=== PATIENT | male | born 1945 | race Caucasian/White ===

== ENCOUNTER 2017-12-08 16:06 | Inpatient (IN) | payer MEDICARE, OTHER ==
[2017-12-08] MEDS ORDERED: Sodium Chloride 0.9% 10 ML Syringe FLUSH PRN (16:28)
[2017-12-08] MEDS ORDERED: cefTRIAXone 1 GM in Sodium Chloride 0.9% 100 ML IV ONE (16:38)
[2017-12-08] MEDS ORDERED: Ondansetron 4 MG/2 ML SDV IVPUSH ONE (16:39)
[2017-12-08] MEDS ORDERED: Acetaminophen 325 MG Tab PO ONE (16:39)
--- NOTE | 2017-12-08 16:44 | EDM.PDOC ---
ED HPI GENERAL MEDICAL PROBLEM - General Chief Complaint: Genitourinary Problem Stated Complaint: UTI/THROWING UP Time Seen by Provider: 12/08/17 16:16 Source of Information: Reports: Patient, RN Notes Reviewed - History of Present Illness INITIAL COMMENTS - FREE TEXT/NARRATIVE: 72-year-old male is been sent over from walk-in clinic for further evaluation treatment of UTI, fever or chills. He started with achiness yesterday and just not feeling well in a general way. The fever started sometime earlier today with shaking chills this afternoon, temp 103.5 on arrival to ED. The also has developed some nausea and vomiting over the past 1-2 hours. He is not diabetic. No major abdominal back or flank discomfort at this time. He is not coughing, no difficulty breathing. He does have history of what is described as a "UTI treated with 1 dose of IV and then continued oral antibiotics about 1 months ago. Abdominal Pain Score (Numeric/FACES): 4 - Related Data Allergies Allergy/AdvReac Type Severity Reaction Status Date / Time No Known Allergies Allergy Verified 12/08/17 16:20 Home Meds: Home Meds Omeprazole 40 mg PO DAILY PRN 12/08/17 [History] Past Medical History HEENT History: Reports: Impaired Vision Other HEENT History: wears eyeglasses. Gastrointestinal History: Reports: GERD Genitourinary History: Reports: UTI, Recurrent Other Genitourinary History: TURP Musculoskeletal History: Reports: Arthritis, Fracture Other Musculoskeletal History: surgery for infected finger. Neurological History: Reports: Vertigo Hematologic History: Reports: Anemia, Iron Deficiency Oncologic (Cancer) History: Reports: Basal Cell Carcinoma Dermatologic History: Reports: Other (See Below) Other Dermatologic History: skin CA - Infectious Disease History Infectious Disease History: Reports: Chicken Pox, Measles, Mumps - Past Surgical History HEENT Surgical History: Reports: Tonsillectomy Male Surgical History: Reports: TURP-Transurethral Resection of Prostate Social & Family History - Tobacco Use Smoking Status *Q: Never Smoker Second Hand Smoke Exposure: No - Caffeine Use Caffeine Use: Reports: Soda - Recreational Drug Use Recreational Drug Use: No ED ROS GENERAL - Review of Systems Review Of Systems: See Below Constitutional: Reports: Fever, Chills HEENT: Denies: Sinus Problem, Throat Pain Respiratory: Denies: Shortness of Breath, Cough Cardiovascular: Denies: Chest Pain GI/Abdominal: Reports: Nausea, Vomiting. Denies: Abdominal Pain : Reports: Frequency. Denies: Dysuria, Hematuria Musculoskeletal: Reports: Other (Generalized achiness) Skin: Reports: No Symptoms Neurological: Reports: No Symptoms ED EXAM, RENAL/ - Physical Exam Exam: See Below General Appearance: Alert, No Apparent Distress Eye Exam: Bilateral Eye: PERRL Nose: Normal Inspection Throat/Mouth: Normal Inspection, Normal Oropharynx Head: Atraumatic. No: Facial Swelling Neck: Supple, Full Range of Motion Respiratory/Chest: No Respiratory Distress, Lungs Clear, Normal Breath Sounds Cardiovascular: Tachycardia GI/Abdominal: Soft, Non-Tender. No: Guarding (Male) Exam: Normal Prostate (prostate very slightly enlarged, nontender, no unusual mass palpable) Back Exam: No: CVA Tenderness (L), CVA Tenderness (R) Extremities: Normal Inspection, Normal Range of Motion. No: Pedal Edema Neurological: Alert, Oriented, No Motor/Sensory Deficits Skin Exam: Warm, Dry, Normal Color Course - Vital Signs Last Recorded V/S: Last Vital Signs Temp 103 F H 12/08/17 16:55 Pulse 100 12/08/17 16:10 Resp 18 12/08/17 16:10 BP 146/77 H 12/08/17 16:10 Pulse Ox 95 12/08/17 16:10 - Orders/Labs/Meds Orders: Active Orders 24 hr Category Date Time Status Peripheral IV Care [RC] . DIRECTED Care 12/08/17 16:28 Active CULTURE BLOOD [BC] Stat Lab 12/08/17 16:40 Received CULTURE BLOOD [BC] Stat Lab 12/08/17 16:50 Received CULTURE URINE [RM] Stat Lab 12/08/17 17:15 Received UA W/MICROSCOPIC [URIN] Stat Lab 12/08/17 17:15 Ordered Levofloxacin/Dextrose 5%-Water [Levaquin in D5W 750 MG/ Med 12/08/17 18:00 Active 150 ML] 750 mg Premix Bag 1 bag IV ONETIME Sodium Chloride 0.9% [Normal Saline] 1,000 ml Med 12/08/17 16:45 Active IV ONETIME Sodium Chloride 0.9% [Saline Flush] Med 12/08/17 16:28 Active 10 ml FLUSH ASDIRECTED PRN Peripheral IV Insertion Adult [OM.PC] Stat Oth 12/08/17 16:28 Ordered Medication Orders Sodium Chloride (Normal Saline) 1,000 mls @ 999 mls/hr IV ONETIME ELIE Last Admin: 12/08/17 16:54 Dose: 999 mls/hr Levofloxacin/Dextrose 750 mg/ (Premix) 150 mls @ 100 mls/hr IV ONETIME ONE Stop: 12/08/17 19:29 Last Admin: 12/08/17 18:19 Dose: 100 mls/hr Sodium Chloride (Saline Flush) 10 ml FLUSH ASDIRECTED PRN PRN Reason: Keep Vein Open Last Admin: 12/08/17 17:28 Dose: 10 ml Labs: Laboratory Tests 12/08/17 12/08/17 12/08/17 Range/Units 16:40 16:40 16:40 WBC 16.27 H (4.23-9.07) K/mm3 RBC 5.42 (4.63-6.08) M/mm3 Hgb 15.2 (13.7-17.5) gm/L Hct 45.3 (40.1-51.0) % MCV 83.6 (79.0-92.2) fl MCH 28.0 (25.7-32.2) pg MCHC 33.6 (32.2-35.5) g/dl RDW Std Deviation 40.5 (35.1-43.9) fL Plt Count 225 (163-337) K/mm3 MPV 9.6 (9.4-12.3) fl Neutrophils % (Manual) 92 H (40-60) % Band Neutrophils % 0 (0-10) % Lymphocytes % (Manual) 4 L (20-40) % Atypical Lymphs % 0 % Monocytes % (Manual) 4 (2-10) % Eosinophils % (Manual) 0 L (0.8-7.0) % Basophils % (Manual) 0 L (0.2-1.2) Toxic Granulation 1+ slight Platelet Estimate Adequate Plt Morphology Comment Normal RBC Morph Comment Normal Sodium 137 (136-145) mEq/L Potassium 3.7 (3.5-5.1) mEq/L Chloride 103 (98-107) mEq/L Carbon Dioxide 24 (21-32) mEq/L Anion Gap 13.7 (5-15) BUN 21 H (7-18) mg/dL Creatinine 1.5 H (0.7-1.3) mg/dL Est Cr Clr Drug Dosing 45.17 mL/min Estimated GFR (MDRD) 46 (>60) mL/min BUN/Creatinine Ratio 14.0 (14-18) Glucose 108 (83-115) mg/dL Calcium 8.8 (8.5-10.1) mg/dL Total Bilirubin 0.5 (0.2-1.0) mg/dL AST 21 (15-37) U/L ALT 27 (16-63) U/L Alkaline Phosphatase 95 (46-116) U/L C-Reactive Protein 2.7 H* (<1.0) mg/dL Total Protein 7.3 (6.4-8.2) g/dl Albumin 3.9 (3.4-5.0) g/dl Globulin 3.4 gm/dL Albumin/Globulin Ratio 1.2 (1-2) Urine Color (Yellow) Urine Appearance (Clear) Urine pH (5.0-8.0) Ur Specific [place] (1.005-1.030) Urine Protein (Negative) Urine Glucose (UA) (Negative) Urine Ketones (Negative) Urine Occult Blood (Negative) Urine Nitrite (Negative) Urine Bilirubin (Negative) Urine Urobilinogen (0.2-1.0) Ur Leukocyte Esterase (Negative) Urine RBC (0-5) /hpf Urine WBC (0-5) /hpf Ur Epithelial Cells (0-5) /hpf Urine Bacteria (FEW) /hpf Urine Mucus (FEW) /hpf 12/08/17 Range/Units 17:15 WBC (4.23-9.07) K/mm3 RBC (4.63-6.08) M/mm3 Hgb (13.7-17.5) gm/L Hct (40.1-51.0) % MCV (79.0-92.2) fl MCH (25.7-32.2) pg MCHC (32.2-35.5) g/dl RDW Std Deviation (35.1-43.9) fL Plt Count (163-337) K/mm3 MPV (9.4-12.3) fl Neutrophils % (Manual) (40-60) % Band Neutrophils % (0-10) % Lymphocytes % (Manual) (20-40) % Atypical Lymphs % % Monocytes % (Manual) (2-10) % Eosinophils % (Manual) (0.8-7.0) % Basophils % (Manual) (0.2-1.2) Toxic Granulation Platelet Estimate Plt Morphology Comment RBC Morph Comment Sodium (136-145) mEq/L Potassium (3.5-5.1) mEq/L Chloride (98-107) mEq/L Carbon Dioxide (21-32) mEq/L Anion Gap (5-15) BUN (7-18) mg/dL Creatinine (0.7-1.3) mg/dL Est Cr Clr Drug Dosing mL/min Estimated GFR (MDRD) (>60) mL/min BUN/Creatinine Ratio (14-18) Glucose (83-115) mg/dL Calcium (8.5-10.1) mg/dL Total Bilirubin (0.2-1.0) mg/dL AST (15-37) U/L ALT (16-63) U/L Alkaline Phosphatase (46-116) U/L C-Reactive Protein (<1.0) mg/dL Total Protein (6.4-8.2) g/dl Albumin (3.4-5.0) g/dl Globulin gm/dL Albumin/Globulin Ratio (1-2) Urine Color Yellow (Yellow) Urine Appearance Cloudy H (Clear) Urine pH 8.0 (5.0-8.0) Ur Specific [place] 1.025 (1.005-1.030) Urine Protein 2+ H (Negative) Urine Glucose (UA) Negative (Negative) Urine Ketones 1+ H (Negative) Urine Occult Blood 3+ H (Negative) Urine Nitrite Negative (Negative) Urine Bilirubin Negative (Negative) Urine Urobilinogen 0.2 (0.2-1.0) Ur Leukocyte Esterase 1+ H (Negative) Urine RBC 50-75 H (0-5) /hpf Urine WBC 20-30 H (0-5) /hpf Ur Epithelial Cells 0-5 (0-5) /hpf Urine Bacteria Many H (FEW) /hpf Urine Mucus Not seen (FEW) /hpf Meds: Medications Generic Name Dose Route Start Last Admin Trade Name Freq PRN Reason Stop Dose Admin Sodium Chloride 1,000 mls @ 999 mls/hr 12/08/17 16:45 12/08/17 16:54 Normal Saline IV 999 mls/hr ONETIME ELIE Administration Levofloxacin/Dextrose 750 mg/ 150 mls @ 100 mls/hr 12/08/17 18:00 12/08/17 18 :19 Premix IV 12/08/17 19:29 100 mls/hr ONETIME ONE Administration Sodium Chloride 10 ml 12/08/17 16:28 12/08/17 17:28 Saline Flush FLUSH 10 ml ASDIRECTED PRN Administration Keep Vein Open Discontinued Medications Generic Name Dose Route Start Last Admin Trade Name Bogdan PRN Reason Stop Dose Admin Acetaminophen 975 mg 12/08/17 16:39 12/08/17 16:55 Tylenol PO 12/08/17 16:40 975 mg NOW ONE Administration Ceftriaxone Sodium 1 gm/ 100 mls @ 200 mls/hr 12/08/17 16:38 12/08/17 16:54 Sodium Chloride IV 12/08/17 17:07 200 mls/hr ONETIME ONE Administration Ondansetron HCl 4 mg 12/08/17 16:39 12/08/17 16:55 Zofran IVPUSH 12/08/17 16:40 4 mg ONETIME ONE Administration - Re-Assessments/Exams Free Text/Narrative Re-Assessment/Exam: 12/08/17 18:14 UA shows 20-30 WBCs per high-power field, many bacteria. Temp was 103.5 on arrival to ED, heart rate 100. As noted he also had some nausea vomiting this afternoon. Therefore he is not a good candidate to go home. Urine culture has been ordered. Blood cultures have been also collected 2. Have already treated with Rocephin 1 g IV while awaiting labs. Have also ordered Levaquin 750 mg IV. I have discussed this with Dr. Garrido our Hospitalist on duty. We will be admitting for further treatment. Departure - Departure Time of Disposition: 18:13 Disposition: Home, Self-Care 01 Condition: Fair Clinical Impression: Pyelonephritis - Discharge Information ED Communication - Discussed Case With (1) Discussed Case With (1): Admitting Provider (Dr Garrido, decision to admit at about 18:05) - My Orders Last 24 Hours: My Active Orders 12/08/17 16:28 Peripheral IV Care [RC] . DIRECTED Sodium Chloride 0.9% [Saline Flush] 10 ml FLUSH ASDIRECTED PRN Peripheral IV Insertion Adult [OM.PC] Stat 12/08/17 16:40 CULTURE BLOOD [BC] Stat 12/08/17 16:45 Sodium Chloride 0.9% [Normal Saline] 1,000 ml IV ONETIME 12/08/17 16:50 CULTURE BLOOD [BC] Stat 12/08/17 17:15 CULTURE URINE [RM] Stat UA W/MICROSCOPIC [URIN] Stat 12/08/17 18:00 Levofloxacin/Dextrose 5%-Water [Levaquin in D5W 750 MG/150 ML] 750 mg Premix Bag 1 bag IV ONETIME - Assessment/Plan Last 24 Hours: My Active Orders 12/08/17 16:28 Peripheral IV Care [RC] . DIRECTED Sodium Chloride 0.9% [Saline Flush] 10 ml FLUSH ASDIRECTED PRN Peripheral IV Insertion Adult [OM.PC] Stat 12/08/17 16:40 CULTURE BLOOD [BC] Stat 12/08/17 16:45 Sodium Chloride 0.9% [Normal Saline] 1,000 ml IV ONETIME 12/08/17 16:50 CULTURE BLOOD [BC] Stat 12/08/17 17:15 CULTURE URINE [RM] Stat UA W/MICROSCOPIC [URIN] Stat 12/08/17 18:00 Levofloxacin/Dextrose 5%-Water [Levaquin in D5W 750 MG/150 ML] 750 mg Premix Bag 1 bag IV ONETIME
[2017-12-08] MEDS ORDERED: Sodium Chloride 0.9% 1,000 ML IV SCH (16:45)
[2017-12-08] MEDS ORDERED: Levofloxacin/Dextrose 5%-Water 750 MG in Premix Bag 1 BAG IV ONE (18:00)
[2017-12-08] MEDS ORDERED: Bisacodyl 5 MG Tab PO PRN (20:34)
[2017-12-08] MEDS ORDERED: Docusate Sodium 100 MG Cap PO PRN (20:34)
[2017-12-08] MEDS ORDERED: Temazepam 7.5 MG Cap PO PRN (20:34)
[2017-12-08] MEDS ORDERED: Polyethylene Glycol 3350 Powder 17 GM Packet PO PRN (20:34)
[2017-12-08] MEDS ORDERED: Magnesium Hydroxide 400 MG/5 ML Susp 30 ML Cup PO PRN (20:34)
[2017-12-08] MEDS ORDERED: HYDROmorphone 0.5 MG/0.5 ML SYRINGE IVPUSH PRN (20:34)
[2017-12-08] MEDS ORDERED: Acetaminophen/oxyCODONE 325-5 MG Tab PO PRN (20:34)
[2017-12-08] MEDS ORDERED: Ondansetron 4 MG/2 ML SDV IV PRN (20:34)
[2017-12-08] MEDS ORDERED: Ondansetron 4 MG Tab.DIS PO PRN (20:34)
[2017-12-08] MEDS ORDERED: hydrALAZINE 20 MG/ML SDV IVPUSH PRN (20:42)
[2017-12-08] MEDS ORDERED: Metoprolol Tartrate 5 MG/5 ML SDV IVPUSH PRN (20:43)
--- NOTE | 2017-12-08 20:50 | PCM.HP ---
H&P History of Present Illness - General Date of Service: 12/08/17 Admit Problem/Dx: Admission Diagnosis/Problem Admission Diagnosis/Problem Pyelonephritis Source of Information: Patient, Provider History Limitations: Reports: No Limitations - History of Present Illness Initial Comments - Free Text/Narative: HPI: This is a 72 yo male with past medical h/o BPH s/p TURP in 2006, GERD, anemia, vertigo and h/o of MRSA who comes in for Pyelonephritis with possible prostatitis. He c/o fever, chills, muscle aches, dysuria/dribbling, nausea, vomiting. He denies headache, diarrhea, chest pain, shortness of breath, or other GI/ complaints. His symptoms improved after receiving Tylenol, Zofran, fluids and antibiotics in the ED. His initial workup in the ED showed a CBC remarkable for WBC 16.27, Neut 92%, Lymph 4%. His chemistry is remarkable for BUN 21, Cr 1.5, eGFR 46, CRP 2.7. UA is impressive for UTI. He is subsequently admitted to the medical floor on telemetry. He is a full code. His PCP is in [place], [place]. Abdominal Pain Score (Numeric/FACES): 0 - Related Data Allergies/Adverse Reactions: Allergies Allergy/AdvReac Type Severity Reaction Status Date / Time No Known Allergies Allergy Verified 12/08/17 16:20 Home Medications: Home Meds Omeprazole 40 mg PO DAILY PRN 12/08/17 [History] Past Medical History HEENT History: Reports: Impaired Vision Other HEENT History: wears eyeglasses. Gastrointestinal History: Reports: GERD Genitourinary History: Reports: UTI, Recurrent Other Genitourinary History: TURP Musculoskeletal History: Reports: Arthritis, Fracture Other Musculoskeletal History: surgery for infected finger. Neurological History: Reports: Vertigo Hematologic History: Reports: Anemia, Iron Deficiency Oncologic (Cancer) History: Reports: Basal Cell Carcinoma Dermatologic History: Reports: Other (See Below) Other Dermatologic History: skin CA - Infectious Disease History Infectious Disease History: Reports: Chicken Pox, Measles, Mumps - Past Surgical History HEENT Surgical History: Reports: Tonsillectomy Male Surgical History: Reports: TURP-Transurethral Resection of Prostate Social & Family History - Tobacco Use Smoking Status *Q: Never Smoker Second Hand Smoke Exposure: No - Caffeine Use Caffeine Use: Reports: Soda Caffeine Use Comment: Patient states he drinks about 2-3 12oz cans - Recreational Drug Use Recreational Drug Use: No H&P Review of Systems - Review of Systems: Review Of Systems: See Below General: Reports: Fever, Chills, Weakness (generalized) HEENT: Reports: Glasses Pulmonary: Reports: No Symptoms. Denies: Shortness of Breath, Cough Cardiovascular: Reports: No Symptoms. Denies: Chest Pain, Palpitations, Edema, Lightheadedness, Blood Pressure Problem Gastrointestinal: Reports: Nausea, Vomiting. Denies: Abdominal Pain, Diarrhea Genitourinary: Reports: Dysuria (mild), Burning (mild), Other (dribbling). Denies: Frequency, Pain, Urgency, Incontinence, Flank Pain Musculoskeletal: Reports: No Symptoms Skin: Reports: No Symptoms Psychiatric: Reports: No Symptoms Neurological: Reports: No Symptoms Hematologic/Lymphatic: Reports: No Symptoms Immunologic: Reports: No Symptoms Exam - Exam Exam: See Below - Vital Signs Vital Signs: Last Vital Signs Temp 103 F H 12/08/17 16:55 Pulse 100 12/08/17 16:10 Resp 18 12/08/17 16:10 BP 146/77 H 12/08/17 16:10 Pulse Ox 95 12/08/17 16:10 Weight: 169 lb - Exam Quality Assessment: DVT Prophylaxis General: Alert, Oriented, Cooperative, Mild Distress HEENT: PERRLA, Hearing Intact, Mucosa Moist & [place], Nares Patent, Normal Nasal Septum, Posterior Pharynx Clear, Conjunctiva Clear, EOMI, EACs Clear, TMs Clear Neck: Supple, Trachea Midline, 2 Lungs: Clear to Auscultation, Normal Respiratory Effort GI/Abdominal Exam: Normal Bowel Sounds, Soft, Non-Tender, No Organomegaly, No Distention, No Abnormal Bruit, No Mass, Pelvis Stable (Male) Exam: Deferred Rectal (Males) Exam: Deferred Back Exam: Normal Inspection, Full Range of Motion. No: CVA Tenderness (L), CVA Tenderness (R) Extremities: Normal Inspection, Normal Range of Motion, Non-Tender, No Pedal Edema, Normal Capillary Refill Peripheral Pulses: 3+: Posterior Tibial (L), Posterior Tibial (R), Dorsalis Pedis (L), Dorsalis Pedis (R) Skin: Warm, Dry, Intact Neurological: Cranial Nerves Intact (grossly), Reflexes Equal Bilateral Neuro Extensive - Mental Status: Alert, Oriented x3, Normal Mood/Affect, Normal Cognition, Memory Intact Psychiatric: Alert, Normal Affect, Normal Mood - Patient Data Lab Results Last 24 hrs: Laboratory Results - last 24 hr 12/08/17 12/08/17 12/08/17 Range/Units 16:40 16:40 16:40 WBC 16.27 H (4.23-9.07) K/mm3 RBC 5.42 (4.63-6.08) M/mm3 Hgb 15.2 (13.7-17.5) gm/L Hct 45.3 (40.1-51.0) % MCV 83.6 (79.0-92.2) fl MCH 28.0 (25.7-32.2) pg MCHC 33.6 (32.2-35.5) g/dl RDW Std Deviation 40.5 (35.1-43.9) fL Plt Count 225 (163-337) K/mm3 MPV 9.6 (9.4-12.3) fl Neutrophils % (Manual) 92 H (40-60) % Band Neutrophils % 0 (0-10) % Lymphocytes % (Manual) 4 L (20-40) % Atypical Lymphs % 0 % Monocytes % (Manual) 4 (2-10) % Eosinophils % (Manual) 0 L (0.8-7.0) % Basophils % (Manual) 0 L (0.2-1.2) Toxic Granulation 1+ slight Platelet Estimate Adequate Plt Morphology Comment Normal RBC Morph Comment Normal Sodium 137 (136-145) mEq/L Potassium 3.7 (3.5-5.1) mEq/L Chloride 103 (98-107) mEq/L Carbon Dioxide 24 (21-32) mEq/L Anion Gap 13.7 (5-15) BUN 21 H (7-18) mg/dL Creatinine 1.5 H (0.7-1.3) mg/dL Est Cr Clr Drug Dosing 45.17 mL/min Estimated GFR (MDRD) 46 (>60) mL/min BUN/Creatinine Ratio 14.0 (14-18) Glucose 108 (83-115) mg/dL Lactic Acid (0.4-2.0) mmol/L Calcium 8.8 (8.5-10.1) mg/dL Total Bilirubin 0.5 (0.2-1.0) mg/dL AST 21 (15-37) U/L ALT 27 (16-63) U/L Alkaline Phosphatase 95 (46-116) U/L C-Reactive Protein 2.7 H* (<1.0) mg/dL Total Protein 7.3 (6.4-8.2) g/dl Albumin 3.9 (3.4-5.0) g/dl Globulin 3.4 gm/dL Albumin/Globulin Ratio 1.2 (1-2) Urine Color (Yellow) Urine Appearance (Clear) Urine pH (5.0-8.0) Ur Specific [place] (1.005-1.030) Urine Protein (Negative) Urine Glucose (UA) (Negative) Urine Ketones (Negative) Urine Occult Blood (Negative) Urine Nitrite (Negative) Urine Bilirubin (Negative) Urine Urobilinogen (0.2-1.0) Ur Leukocyte Esterase (Negative) Urine RBC (0-5) /hpf Urine WBC (0-5) /hpf Ur Epithelial Cells (0-5) /hpf Urine Bacteria (FEW) /hpf Urine Mucus (FEW) /hpf 12/08/17 12/08/17 Range/Units 16:50 17:15 WBC (4.23-9.07) K/mm3 RBC (4.63-6.08) M/mm3 Hgb (13.7-17.5) gm/L Hct (40.1-51.0) % MCV (79.0-92.2) fl MCH (25.7-32.2) pg MCHC (32.2-35.5) g/dl RDW Std Deviation (35.1-43.9) fL Plt Count (163-337) K/mm3 MPV (9.4-12.3) fl Neutrophils % (Manual) (40-60) % Band Neutrophils % (0-10) % Lymphocytes % (Manual) (20-40) % Atypical Lymphs % % Monocytes % (Manual) (2-10) % Eosinophils % (Manual) (0.8-7.0) % Basophils % (Manual) (0.2-1.2) Toxic Granulation Platelet Estimate Plt Morphology Comment RBC Morph Comment Sodium (136-145) mEq/L Potassium (3.5-5.1) mEq/L Chloride (98-107) mEq/L Carbon Dioxide (21-32) mEq/L Anion Gap (5-15) BUN (7-18) mg/dL Creatinine (0.7-1.3) mg/dL Est Cr Clr Drug Dosing mL/min Estimated GFR (MDRD) (>60) mL/min BUN/Creatinine Ratio (14-18) Glucose (83-115) mg/dL Lactic Acid 1.1 (0.4-2.0) mmol/L Calcium (8.5-10.1) mg/dL Total Bilirubin (0.2-1.0) mg/dL AST (15-37) U/L ALT (16-63) U/L Alkaline Phosphatase (46-116) U/L C-Reactive Protein (<1.0) mg/dL Total Protein (6.4-8.2) g/dl Albumin (3.4-5.0) g/dl Globulin gm/dL Albumin/Globulin Ratio (1-2) Urine Color Yellow (Yellow) Urine Appearance Cloudy H (Clear) Urine pH 8.0 (5.0-8.0) Ur Specific [place] 1.025 (1.005-1.030) Urine Protein 2+ H (Negative) Urine Glucose (UA) Negative (Negative) Urine Ketones 1+ H (Negative) Urine Occult Blood 3+ H (Negative) Urine Nitrite Negative (Negative) Urine Bilirubin Negative (Negative) Urine Urobilinogen 0.2 (0.2-1.0) Ur Leukocyte Esterase 1+ H (Negative) Urine RBC 50-75 H (0-5) /hpf Urine WBC 20-30 H (0-5) /hpf Ur Epithelial Cells 0-5 (0-5) /hpf Urine Bacteria Many H (FEW) /hpf Urine Mucus Not seen (FEW) /hpf Result Diagrams: 12/08/17 16:40 12/08/17 16:40 - Problem List (1) Pyelonephritis SNOMED Code(s): 30543447 ICD Code: N12 - TUBULO-INTERSTITIAL NEPHRITIS, NOT SPCF ACUTE OR CHRONIC Status: Acute Priority: High Current Visit: Yes (2) Recurrent UTI SNOMED Code(s): 385256561 ICD Code: N39.0 - URINARY TRACT INFECTION, SITE NOT SPECIFIED Status: Acute Priority: High Current Visit: Yes (3) H/O transurethral resection of prostate Status: Resolved Priority: Low Current Visit: No (4) H/O methicillin resistant Staphylococcus aureus SNOMED Code(s): 281926235, 574140758 ICD Code: Z86.14 - PERSONAL HISTORY OF METHICILLIN RESIS STAPH INFECTION Status: Chronic Priority: High Current Visit: Yes Problem List Initiated/Reviewed/Updated: Yes Orders Last 24hrs: Active Orders 24 hr Category Date Time Status Admission Status [Patient Status] [ADT] Routine ADT 12/08/17 18:19 Active Cardiac Monitoring [RC] INTERMITTENT Care 12/08/17 20:35 Ordered Height and Weight [RC] DAILY Care 12/08/17 20:34 Ordered Intake and Output [RC] QSHIFT Care 12/08/17 20:35 Ordered May Shower [RC] ASDIRECTED Care 12/08/17 20:34 Ordered Oxygen Therapy [RC] PRN Care 12/08/17 20:34 Ordered Peripheral IV Care [RC] . DIRECTED Care 12/08/17 16:28 Active Pulse Oximetry [RC] PRN Care 12/08/17 20:35 Ordered Up ad Vidhya [RC] ASDIRECTED Care 12/08/17 20:34 Ordered VTE/DVT Education [RC] PER UNIT ROUTINE Care 12/08/17 20:34 Ordered Vital Signs [RC] Q4H Care 12/08/17 20:34 Ordered Regular Diet [DIET] Diet 12/09/17 Breakfast Ordered BASIC METABOLIC PANEL,BMP [CHEM] AM Lab 12/09/17 05:11 Ordered BASIC METABOLIC PANEL,BMP [CHEM] AM Lab 12/10/17 05:11 Ordered BASIC METABOLIC PANEL,BMP [CHEM] AM Lab 12/11/17 05:11 Ordered BASIC METABOLIC PANEL,BMP [CHEM] AM Lab 12/12/17 05:11 Ordered BASIC METABOLIC PANEL,BMP [CHEM] AM Lab 12/13/17 05:11 Ordered C-REACTIVE PROTEIN [CHEM] AM Lab 12/09/17 05:11 Ordered C-REACTIVE PROTEIN [CHEM] AM Lab 12/10/17 05:11 Ordered C-REACTIVE PROTEIN [CHEM] AM Lab 12/11/17 05:11 Ordered C-REACTIVE PROTEIN [CHEM] AM Lab 12/12/17 05:11 Ordered C-REACTIVE PROTEIN [CHEM] AM Lab 12/13/17 05:11 Ordered CBC WITH AUTO DIFF [HEME] AM Lab 12/09/17 05:11 Ordered CBC WITH AUTO DIFF [HEME] AM Lab 12/10/17 05:11 Ordered CBC WITH AUTO DIFF [HEME] AM Lab 12/11/17 05:11 Ordered CBC WITH AUTO DIFF [HEME] AM Lab 12/12/17 05:11 Ordered CBC WITH AUTO DIFF [HEME] AM Lab 12/13/17 05:11 Ordered CULTURE BLOOD [BC] Stat Lab 12/08/17 16:40 Received CULTURE BLOOD [BC] Stat Lab 12/08/17 16:50 Received CULTURE MRSA [RM] Stat Lab 12/08/17 20:34 Ordered CULTURE URINE [RM] Stat Lab 12/08/17 17:15 Received METH-RESIST S.AUR,MRSA BY PCR [MOLEC] Routine Lab 12/08/17 20:42 Ordered UA W/MICROSCOPIC [URIN] Stat Lab 12/08/17 17:15 Ordered Acetaminophen/oxyCODONE [Percocet 325-5 MG] Med 12/08/17 20:34 Ordered 1 tab PO Q4H PRN Bisacodyl [Dulcolax] Med 12/08/17 20:34 Ordered 5 mg PO DAILY PRN Docusate Sodium [Colace] Med 12/08/17 20:34 Ordered 100 mg PO BID PRN Docusate Sodium/Sennosides [Senna Plus] Med 12/08/17 20:34 Ordered 1 tab PO BID PRN Enoxaparin [Lovenox] Med 12/09/17 09:00 Ordered 30 mg SUBCUT DAILY HYDROmorphone [Dilaudid] Med 12/08/17 20:34 Ordered 0.25 mg IVPUSH Q2H PRN Levofloxacin/Dextrose 5%-Water [Levaquin in D5W 750 MG/ Med 12/09/17 09:00 Ordered 150 ML] 750 mg Premix Bag 1 bag IV Q24H Magnesium Hydroxide [Milk of Magnesia] Med 12/08/17 20:34 Ordered 30 ml PO Q12H PRN Metoprolol Tartrate [Lopressor] Med 12/08/17 20:43 Ordered 5 mg IVPUSH Q4H PRN Ondansetron [Zofran ODT] Med 12/08/17 20:34 Ordered 4 mg PO Q4H PRN Ondansetron [Zofran] Med 12/08/17 20:34 Ordered 4 mg IV Q4H PRN Pantoprazole [ProTONIX IV] Med 12/09/17 09:00 Ordered 40 mg IVPUSH DAILY Polyethylene Glycol 3350 [MiraLAX] Med 12/08/17 20:34 Ordered 17 gm PO DAILY PRN Sodium Chloride 0.9% [Normal Saline] 1,000 ml Med 12/08/17 20:45 Ordered IV ASDIRECTED Sodium Chloride 0.9% [Normal Saline] 1,000 ml Med 12/08/17 16:45 Active IV ONETIME Sodium Chloride 0.9% [Saline Flush] Med 12/08/17 16:28 Active 10 ml FLUSH ASDIRECTED PRN Temazepam [Restoril] Med 12/08/17 20:34 Ordered 7.5 mg PO BEDTIME PRN hydrALAZINE [Apresoline] Med 12/08/17 20:42 Ordered 10 mg IVPUSH Q4H PRN Peripheral IV Insertion Adult [OM.PC] Stat Oth 12/08/17 16:28 Ordered Resuscitation Status Routine Resus Stat 12/08/17 20:34 Ordered Medication Orders Bisacodyl (Dulcolax) 5 mg PO DAILY PRN PRN Reason: Constipation Docusate Sodium (Colace) 100 mg PO BID PRN PRN Reason: Constipation Enoxaparin Sodium (Lovenox) 30 mg SUBCUT DAILY [facility] Hydralazine HCl (Apresoline) 10 mg IVPUSH Q4H PRN PRN Reason: Hypertension Hydromorphone HCl (Dilaudid) 0.25 mg IVPUSH Q2H PRN PRN Reason: Pain (severe 7-10) Sodium Chloride (Normal Saline) 1,000 mls @ 999 mls/hr IV ONETIME [facility] Last Admin: 12/08/17 16:54 Dose: 999 mls/hr Sodium Chloride (Normal Saline) 1,000 mls @ 75 mls/hr IV ASDIRECTED [facility] Levofloxacin/Dextrose 750 mg/ (Premix) 150 mls @ 100 mls/hr IV Q24H [facility] Magnesium Hydroxide (Milk Of Magnesia) 30 ml PO Q12H PRN PRN Reason: Constipation Metoprolol Tartrate (Lopressor) 5 mg IVPUSH Q4H PRN PRN Reason: Tachycardia Ondansetron HCl (Zofran Odt) 4 mg PO Q4H PRN PRN Reason: nausea, able to take PO Ondansetron HCl (Zofran) 4 mg IV Q4H PRN PRN Reason: Nausea/Vomiting Oxycodone/Acetaminophen (Percocet 325-5 Mg) 1 tab PO Q4H PRN PRN Reason: Pain (moderate 4-6) Pantoprazole Sodium (Protonix Iv) 40 mg IVPUSH DAILY ELIE Polyethylene Glycol (Miralax) 17 gm PO DAILY PRN PRN Reason: Constipation Senna/Docusate Sodium (Senna Plus) 1 tab PO BID PRN PRN Reason: Constipation Sodium Chloride (Saline Flush) 10 ml FLUSH ASDIRECTED PRN PRN Reason: Keep Vein Open Last Admin: 12/08/17 17:28 Dose: 10 ml Temazepam (Restoril) 7.5 mg PO BEDTIME PRN PRN Reason: Sleep Assessment/Plan Comment:: I/P: Acute: Pyelonephritis with possible Prostatitis -Risk Factors: -Recurrent UTI--> per pt last dose of abx was 11/09/17 -h/o BPH s/p TURP 2006 -Fever 103.5 in ED, Tachycardic 100bpm, mild dysuria and dribbling -WBC 16.27; CRP 2.7 -eGFR 46; Cr 1.5 --> most likely acute injury; no h/o CKD per pt -U/A positive for UTI -Urine cx pending -Sepsis workup: -Blood cultures pending -Lactic Acid 1.1 -IVF given in ED--> give add'l 1L then D/C -Rocephin 1g and Levaquin 750mg started in ED--> continue Levaquin 750mg IV Q daily -Zofran PRN for nausea -Advance diet as tolerated -F/u with urology Chronic: BPH s/p TURP in 2006 GERD--> f/u with GI specialist Anemia Vertigo H/o MRSA infection--> check for MRSA; Contact Precautions Plan: Transfered to Med-Surg today He remains stable and continues to improve clinically Other orders as indicated above Routine AM labs Regular Diet DVT Prophylaxis: Lovenox SubQ GI Prophylaxis: Protonix Ambulate ad vidhya Code Status: Full code; PCP: Out of state in [place], [place]
[2017-12-08] MEDS: Sodium Chloride 0.9% 1,000 ML IV SCH (21:29)
[2017-12-08] MEDS ORDERED: Acetaminophen 325 MG Tab PO PRN (22:12)
[2017-12-09] MEDS ORDERED: Enoxaparin 30 MG/0.3 ML Syringe SUBCUT SCH ×2 (09:00→11:20)
[2017-12-09] MEDS ORDERED: Pantoprazole 40 MG Vial IVPUSH SCH (09:00)
[2017-12-09] MEDS ORDERED: Enoxaparin 40 MG/0.4 ML Syringe SUBCUT SCH (11:20)
[2017-12-09] MEDS ORDERED: Pantoprazole 40 MG Tab.CR PO SCH (11:21)
[2017-12-09] MEDS: Loratadine 10 MG Tab PO SCH (12:35)
[2017-12-09] MEDS ORDERED: Levofloxacin/Dextrose 5%-Water 750 MG in Premix Bag 1 BAG IV SCH (18:00)
[2017-12-09] MEDS: Sodium Chloride 0.9% 1,000 ML IV SCH (19:28)
--- NOTE | 2017-12-09 20:36 | PCM.PN ---
- General Info Date of Service: 12/09/17 Admission Dx/Problem (Free Text): Admission Diagnosis/Problem Admission Diagnosis/Problem Pyelonephritis Subjective Update: In to see Preet today. He is laying in bed visiting with his . Overall he is feeling much better today. No pain. No nausea, vomiting, diarrhea, dysuria. Weakness is improving. Urinating. Ambulating. Good appetite. No concerns from nursing. Functional Status: Reports: Pain Controlled, Tolerating Diet, Ambulating, Urinating - Review of Systems General: Reports: Weakness (generalized, improving) HEENT: Reports: Glasses Pulmonary: Reports: No Symptoms. Denies: Shortness of Breath, Cough, Wheezing Cardiovascular: Reports: No Symptoms. Denies: Chest Pain, Palpitations Gastrointestinal: Reports: No Symptoms. Denies: Abdominal Pain, Diarrhea, Nausea, Vomiting Genitourinary: Reports: No Symptoms. Denies: Dysuria, Frequency, Burning, Pain Musculoskeletal: Reports: No Symptoms Skin: Reports: No Symptoms Neurological: Reports: No Symptoms Psychiatric: Reports: No Symptoms - Patient Data Vitals - Most Recent: Last Vital Signs Temp 99.3 F 12/09/17 07:47 Pulse 62 12/09/17 17:46 Resp 16 12/09/17 17:46 BP 128/64 12/09/17 17:46 Pulse Ox 96 12/09/17 17:46 Weight - Most Recent: 168 lb 9.6 oz I&O - Last 24 Hours: Intake & Output 12/09/17 12/09/17 12/09/17 06:59 14:59 22:59 Intake Total 1000 300 820 Output Total 750 Balance 250 300 820 Lab Results Last 24 Hours: Laboratory Results - last 24 hr 12/08/17 12/09/17 12/09/17 Range/Units 21:35 06:28 06:28 WBC 18.07 H (4.23-9.07) K/mm3 RBC 4.66 (4.63-6.08) M/mm3 Hgb 13.1 L (13.7-17.5) gm/L Hct 39.5 L (40.1-51.0) % MCV 84.8 (79.0-92.2) fl MCH 28.1 (25.7-32.2) pg MCHC 33.2 (32.2-35.5) g/dl RDW Std Deviation 40.7 (35.1-43.9) fL Plt Count 195 (163-337) K/mm3 MPV 10.1 (9.4-12.3) fl Neut % (Auto) 82.6 H (34.0-67.9) % Lymph % (Auto) 10.2 L (21.8-53.1) % [place] % (Auto) 6.7 (5.3-12.2) % Eos % (Auto) 0.1 L (0.8-7.0) Baso % (Auto) 0.1 (0.1-1.2) % Neut # (Auto) 14.94 H (1.78-5.38) K/mm3 Lymph # (Auto) 1.84 (1.32-3.57) K/mm3 [place] # (Auto) 1.21 H (0.30-0.82) K/mm3 Eos # (Auto) 0.01 L (0.04-0.54) K/mm3 Baso # (Auto) 0.02 (0.01-0.08) K/mm3 Sodium 138 (136-145) mEq/L Potassium 4.0 (3.5-5.1) mEq/L Chloride 106 (98-107) mEq/L Carbon Dioxide 22 (21-32) mEq/L Anion Gap 14.0 (5-15) BUN 19 H (7-18) mg/dL Creatinine 1.2 (0.7-1.3) mg/dL Est Cr Clr Drug Dosing 56.46 mL/min Estimated GFR (MDRD) 60 (>60) mL/min BUN/Creatinine Ratio 15.8 (14-18) Glucose 105 (83-115) mg/dL Calcium 8.2 L (8.5-10.1) mg/dL C-Reactive Protein 13.7 H* (<1.0) mg/dL MRSA (PCR) Positive H Dennis Results Last 24 Hours: Microbiology 12/08/17 16:50 Aerobic Blood Culture - Preliminary Blood NO GROWTH AFTER 1 DAY Anaerobic Blood Culture - Preliminary NO GROWTH AFTER 1 DAY 12/08/17 16:40 Aerobic Blood Culture - Preliminary Blood NO GROWTH AFTER 1 DAY Anaerobic Blood Culture - Preliminary NO GROWTH AFTER 1 DAY 12/08/17 17:15 Urine Culture - Preliminary Urine, Clean Catch Gram Negative Rods Med Orders - Current: Current Medications Acetaminophen (Tylenol) 650 mg PO Q4H PRN PRN Reason: Fever Last Admin: 12/08/17 22:38 Dose: 650 mg Bisacodyl (Dulcolax) 5 mg PO DAILY PRN PRN Reason: Constipation Docusate Sodium (Colace) 100 mg PO BID PRN PRN Reason: Constipation Enoxaparin Sodium (Lovenox) 40 mg SUBCUT DAILY [facility] Hydralazine HCl (Apresoline) 10 mg IVPUSH Q4H PRN PRN Reason: Hypertension Hydromorphone HCl (Dilaudid) 0.25 mg IVPUSH Q2H PRN PRN Reason: Pain (severe 7-10) Sodium Chloride (Normal Saline) 1,000 mls @ 75 mls/hr IV ASDIRECTED [facility] Last Admin: 12/09/17 19:28 Dose: 75 mls/hr Levofloxacin/Dextrose 750 mg/ (Premix) 150 mls @ 100 mls/hr IV Q24H [facility] Last Admin: 12/09/17 17:25 Dose: 100 mls/hr Loratadine (Claritin) 10 mg PO DAILY [facility] Last Admin: 12/09/17 12:35 Dose: 10 mg Magnesium Hydroxide (Milk Of Magnesia) 30 ml PO Q12H PRN PRN Reason: Constipation Metoprolol Tartrate (Lopressor) 5 mg IVPUSH Q4H PRN PRN Reason: Tachycardia Ondansetron HCl (Zofran Odt) 4 mg PO Q4H PRN PRN Reason: nausea, able to take PO Last Admin: 12/08/17 23:26 Dose: 4 mg Ondansetron HCl (Zofran) 4 mg IV Q4H PRN PRN Reason: Nausea/Vomiting Oxycodone/Acetaminophen (Percocet 325-5 Mg) 1 tab PO Q4H PRN PRN Reason: Pain (moderate 4-6) Pantoprazole Sodium (Protonix) 40 mg PO DAILY [facility] Polyethylene Glycol (Miralax) 17 gm PO DAILY PRN PRN Reason: Constipation Senna/Docusate Sodium (Senna Plus) 1 tab PO BID PRN PRN Reason: Constipation Sodium Chloride (Saline Flush) 10 ml FLUSH ASDIRECTED PRN PRN Reason: Keep Vein Open Last Admin: 12/08/17 17:28 Dose: 10 ml Temazepam (Restoril) 7.5 mg PO BEDTIME PRN PRN Reason: Sleep Discontinued Medications Acetaminophen (Tylenol) 975 mg PO NOW ONE Stop: 12/08/17 16:40 Last Admin: 12/08/17 16:55 Dose: 975 mg Enoxaparin Sodium (Lovenox) 30 mg SUBCUT DAILY [facility] Last Admin: 12/09/17 08:29 Dose: 30 mg Enoxaparin Sodium (Lovenox) 40 mg SUBCUT DAILY [facility] Ceftriaxone Sodium 1 gm/ (Sodium Chloride) 100 mls @ 200 mls/hr IV ONETIME ONE Stop: 12/08/17 17:07 Last Admin: 12/08/17 16:54 Dose: 200 mls/hr Sodium Chloride (Normal Saline) 1,000 mls @ 999 mls/hr IV ONETIME [facility] Last Admin: 12/08/17 16:54 Dose: 999 mls/hr Levofloxacin/Dextrose 750 mg/ (Premix) 150 mls @ 100 mls/hr IV ONETIME ONE Stop: 12/08/17 19:29 Last Admin: 12/08/17 18:19 Dose: 100 mls/hr Levofloxacin/Dextrose 750 mg/ (Premix) 150 mls @ 100 mls/hr IV Q24H [facility] Ondansetron HCl (Zofran) 4 mg IVPUSH ONETIME ONE Stop: 12/08/17 16:40 Last Admin: 12/08/17 16:55 Dose: 4 mg Pantoprazole Sodium (Protonix Iv) 40 mg IVPUSH DAILY [facility] Last Admin: 12/09/17 08:29 Dose: 40 mg - Exam Quality Assessment: DVT Prophylaxis General: Alert, Oriented HEENT: Pupils Equal, Pupils Reactive, EOMI, Mucous Membr. Moist/[place] Neck: Supple Lungs: Clear to Auscultation, Normal Respiratory Effort Cardiovascular: Regular Rate, Regular Rhythm GI/Abdominal Exam: Normal Bowel Sounds, Soft, Non-Tender, No Organomegaly, No Distention, No Abnormal Bruit, No Mass, Pelvis Stable (Male) Exam: Deferred Back Exam: Normal Inspection, Full Range of Motion Extremities: Normal Inspection, Normal Range of Motion, Non-Tender, No Pedal Edema, Normal Capillary Refill Peripheral Pulses: 3+: Posterior Tibial (L), Posterior Tibial (R), Dorsalis Pedis (L), Dorsalis Pedis (R) Skin: Warm, Dry, Intact Neurological: No New Focal Deficit Psy/Mental Status: Alert, Normal Affect, Normal Mood - Problem List & Annotations (1) Pyelonephritis SNOMED Code(s): 53473339 Code(s): N12 - TUBULO-INTERSTITIAL NEPHRITIS, NOT SPCF ACUTE OR CHRONIC Status: Acute Priority: High Current Visit: Yes (2) Recurrent UTI SNOMED Code(s): 185471581 Code(s): N39.0 - URINARY TRACT INFECTION, SITE NOT SPECIFIED Status: Acute Priority: High Current Visit: Yes (3) H/O transurethral resection of prostate Status: Resolved Priority: Low Current Visit: No (4) H/O methicillin resistant Staphylococcus aureus SNOMED Code(s): 124131953, 198568544 Code(s): Z86.14 - PERSONAL HISTORY OF METHICILLIN RESIS STAPH INFECTION Status: Chronic Priority: High Current Visit: Yes - Problem List Review Problem List Initiated/Reviewed/Updated: Yes - My Orders Last 24 Hours: My Active Orders 12/08/17 20:34 Height and Weight [RC] 04 VTE/DVT Education [RC] QSHIFT Vital Signs [RC] Q4HR Acetaminophen/oxyCODONE [Percocet 325-5 MG] 1 tab PO Q4H PRN Bisacodyl [Dulcolax] 5 mg PO DAILY PRN Docusate Sodium [Colace] 100 mg PO BID PRN Docusate Sodium/Sennosides [Senna Plus] 1 tab PO BID PRN HYDROmorphone [Dilaudid] 0.25 mg IVPUSH Q2H PRN Magnesium Hydroxide [Milk of Magnesia] 30 ml PO Q12H PRN Ondansetron [Zofran ODT] 4 mg PO Q4H PRN Ondansetron [Zofran] 4 mg IV Q4H PRN Polyethylene Glycol 3350 [MiraLAX] 17 gm PO DAILY PRN Temazepam [Restoril] 7.5 mg PO BEDTIME PRN Resuscitation Status Routine 12/08/17 20:35 Intake and Output [RC] 04,16 12/08/17 20:42 hydrALAZINE [Apresoline] 10 mg IVPUSH Q4H PRN 12/08/17 20:43 Metoprolol Tartrate [Lopressor] 5 mg IVPUSH Q4H PRN 12/08/17 20:45 Sodium Chloride 0.9% [Normal Saline] 1,000 ml IV ASDIRECTED 12/09/17 11:20 Enoxaparin [Lovenox] 40 mg SUBCUT DAILY 12/09/17 11:21 Pantoprazole [ProTONIX] 40 mg PO DAILY 12/09/17 Breakfast Regular Diet [DIET] 12/10/17 05:11 BASIC METABOLIC PANEL,BMP [CHEM] AM C-REACTIVE PROTEIN [CHEM] AM CBC WITH AUTO DIFF [HEME] AM 12/11/17 05:11 BASIC METABOLIC PANEL,BMP [CHEM] AM C-REACTIVE PROTEIN [CHEM] AM CBC WITH AUTO DIFF [HEME] AM 12/12/17 05:11 BASIC METABOLIC PANEL,BMP [CHEM] AM C-REACTIVE PROTEIN [CHEM] AM CBC WITH AUTO DIFF [HEME] AM 12/13/17 05:11 BASIC METABOLIC PANEL,BMP [CHEM] AM C-REACTIVE PROTEIN [CHEM] AM CBC WITH AUTO DIFF [HEME] AM - Plan Plan:: I/P: Acute: Pyelonephritis with possible Prostatitis -Risk Factors: -Recurrent UTI--> per pt last dose of abx was 11/09/17 -h/o BPH s/p TURP 2006 -Fever 103.5 in ED-->99.3, Tachycardic 100bpm-->62, mild dysuria and dribbling -WBC 16.27-->18.07; CRP 2.7-->13.7 -eGFR 46-->60; Cr 1.5-->1.2 (most likely acute injury; no h/o CKD per pt) -U/A positive for UTI -Urine cx --> Gram negative rods -Sepsis workup: -Blood cultures--> no growth after 1 day -Lactic Acid 1.1 -IVF given in ED--> give add'l 1L then D/C -Rocephin 1g and Levaquin 750mg started in ED--> continue Levaquin 750mg IV Q daily--> PO starting tomorrow -Zofran PRN for nausea -Advance diet as tolerated -F/u with urology Chronic: BPH s/p TURP in 2006 GERD--> f/u with GI specialist Anemia Vertigo H/o MRSA infection--> check for MRSA; Contact Precautions Plan: Transfered to [facility] today He remains stable and continues to improve clinically Other orders as indicated above Routine AM labs Regular Diet DVT Prophylaxis: Lovenox SubQ GI Prophylaxis: Protonix Ambulate ad sylvie Code Status: Full code; PCP: Out of state in [place], [place]
[2017-12-10] MEDS: Sodium Chloride 0.9% 1,000 ML IV SCH (08:14)
[2017-12-10] MEDS: Loratadine 10 MG Tab PO SCH (08:15)
--- NOTE | 2017-12-10 10:58 | PCM.DCSUM1 ---
Discharge Summary - Hospital Course HPI Initial Comments: This is a 72 yo male with past medical h/o BPH s/p TURP in 2006, GERD, anemia, vertigo and h/o of MRSA who comes in for Pyelonephritis with possible prostatitis. He c/o fever, chills, muscle aches, dysuria/dribbling, nausea, vomiting. He denies headache, diarrhea, chest pain, shortness of breath, or other GI/ complaints. His symptoms improved after receiving Tylenol, Zofran, fluids and antibiotics in the ED. His initial workup in the ED showed a CBC remarkable for WBC 16.27, Neut 92%, Lymph 4%. His chemistry is remarkable for BUN 21, Cr 1.5, eGFR 46, CRP 2.7. UA is impressive for UTI. He is subsequently admitted to the medical floor on telemetry. He is a full code. His PCP is in [place], [place]. Diagnosis: Stroke: No - Discharge Data Discharge Date: 12/10/17 Discharge Disposition: Home, Self-Care 01 Condition: Good - Patient Summary/Data Operative Procedure(s) Performed: None Complications: None Consults: None Labs Pending at D/C: None Recommended Follow-up Testing/Procedures: PCP when patient is back in [place] Urologist when patient is back in [place] Planned Operative Procedure(s) after DC: None Hospital Course: I/P: Acute: Pyelonephritis with possible Prostatitis -Risk Factors: -Recurrent UTI--> per patient last dose of abx was 11/09/17 -h/o BPH s/p TURP 2006 -Fever 103.5 in ED-->99.3, Tachycardic 100bpm-->62, mild dysuria and dribbling -WBC 12.61 today, was 18.07 -CRP 20.7 today, was 13.7 -eGFR >60, Cr 1.1, BUN 30 today -->most likely acute injury (no h/o CKD per patient), resolved -U/A positive for UTI -Urine cx: E coli -Sepsis workup: -Blood cultures--> no growth after 1 day -Lactic Acid 1.1 -IVF given in ED--> give add'l 1L then D/C -Rocephin 1g and Levaquin 750mg started in ED--> continue Levaquin 750mg IV Q daily--> will send Rx for Levaquin 500 mg x 5 days -Zofran PRN for nausea -Advance diet as tolerated -F/u with urology in [place] Chronic: BPH s/p TURP in 2006 GERD--> f/u with GI specialist Anemia Vertigo H/o MRSA infection--> check for MRSA; Contact [facility] and continues to improve clinically --> D/C today, 12/10/17 Other orders as indicated above Routine AM labs Regular Diet DVT Prophylaxis: Lovenox SubQ GI Prophylaxis: Protonix Ambulate ad sylvie Code Status: Full code PCP: Out of state in [place], [place] Hospital Course: Preet was admitted for pyelonephritis with possible prostatitis. He has improved during his admission. He has a history of recurrent UTIs, and he reports his last antibiotic dose was 11/09/17. He presented to the ED with fever , chills, muscle aches, dysuria/dribbling, and N/V. UA ordered in ED showed UTI. Sepsis work-up performed in ED and has thus far been negative with negative blood cultures and normal lactic acid. Urine culture showed E coli. Rocephin 1 gm IV and Levaquin 750 mg IV initiated in ED. Levaquin 750 mg IV continued during admission. Rx for Levaquin 500 mg x 5 days at D/C. Labs showed acute kidney injury; renal function improved at D/C with eGFR >60, Cr 1.1, and BUN 30. Patient denies history of previous kidney issues. New medications at discharge: Levaquin 500 mg po daily x 5 days and probiotic. He is to follow-up with a urologist in [place] and see his PCP when he returns to [place]. Patient is stable and ready for discharge today. Patient and patient's agreeable to this plan. - Patient Instructions Diet: Heart Healthy Diet, Usual Diet as Tolerated Driving: May Drive Today Showering/Bathing: May Shower Notify Provider of: Fever, Swelling and Redness, Drainage - Discharge Plan Prescriptions/Med Rec: Levofloxacin [Levaquin] 500 mg PO DAILY 5 Days #5 tab Saccharomyces Boulardii [Florastor] 250 mg PO BID 12 Days #24 cap Home Medications: Home Meds Omeprazole 40 mg PO DAILY PRN 12/08/17 [History] Levofloxacin [Levaquin] 500 mg PO DAILY 5 Days #5 tab 12/10/17 [Rx] Saccharomyces Boulardii [Florastor] 250 mg PO BID 12 Days #24 cap 12/10/17 [Rx] Patient Handouts: Pyelonephritis, Adult, [id number], Prostatitis, Easy-to- Read Referrals: PCP,Not In Area [Primary Care Provider] - - Discharge Summary/Plan Comment DC Time >30 min.: Yes (45) - General Info Admission Dx/Problem (Free Text: Admission Diagnosis/Problem Admission Diagnosis/Problem Pyelonephritis Subjective Update: In to see Preet today. He is resting comfortably in bed. present. He continues to report that he is feeling much better. He denies N/V, diarrhea, and dysuria. Also denies chest pain and dyspnea. He reports he is urinating without difficulty. He is ready for discharge today. Functional Status: Reports: Pain Controlled, Tolerating Diet, Ambulating, Urinating - Review of Systems General: Reports: No Symptoms. Denies: Fever, Weakness, Chills HEENT: Reports: No Symptoms. Denies: Sinus Congestion, Sore Throat Pulmonary: Reports: No Symptoms. Denies: Shortness of Breath, Cough Cardiovascular: Reports: No Symptoms. Denies: Chest Pain, Palpitations, Edema Gastrointestinal: Reports: No Symptoms. Denies: Abdominal Pain, Constipation, Diarrhea, Nausea, Vomiting Genitourinary: Reports: No Symptoms. Denies: Dysuria, Frequency, Burning Musculoskeletal: Reports: No Symptoms. Denies: Joint Pain Skin: Reports: No Symptoms Neurological: Reports: No Symptoms. Denies: Confusion, Dizziness, Headache Psychiatric: Reports: No Symptoms. Denies: Confusion, Depression, Anxiety - Patient Data Vitals - Most Recent: Last Vital Signs Temp 97.7 F 12/10/17 07:31 Pulse 55 L 12/10/17 07:31 Resp 16 12/10/17 07:31 BP 116/59 L 12/10/17 07:31 Pulse Ox 95 12/10/17 07:31 Weight - Most Recent: 167 lb 8 oz I&O - Last 24 hours: Intake & Output 12/09/17 12/10/17 12/10/17 22:59 06:59 14:59 Intake Total 820 1188 420 Balance 820 1188 420 Lab Results - Last 24 hrs: Laboratory Results - last 24 hr 12/10/17 12/10/17 Range/Units 05:47 05:47 WBC 12.61 H (4.23-9.07) K/mm3 RBC 4.75 (4.63-6.08) M/mm3 Hgb 13.3 L (13.7-17.5) gm/L Hct 40.8 (40.1-51.0) % MCV 85.9 (79.0-92.2) fl MCH 28.0 (25.7-32.2) pg MCHC 32.6 (32.2-35.5) g/dl RDW Std Deviation 41.8 (35.1-43.9) fL Plt Count 204 (163-337) K/mm3 MPV 9.6 (9.4-12.3) fl Neut % (Auto) 78.4 H (34.0-67.9) % Lymph % (Auto) 13.8 L (21.8-53.1) % [place] % (Auto) 6.2 (5.3-12.2) % Eos % (Auto) 1.2 (0.8-7.0) Baso % (Auto) 0.2 (0.1-1.2) % Neut # (Auto) 9.90 H (1.78-5.38) K/mm3 Lymph # (Auto) 1.74 (1.32-3.57) K/mm3 [place] # (Auto) 0.78 (0.30-0.82) K/mm3 Eos # (Auto) 0.15 (0.04-0.54) K/mm3 Baso # (Auto) 0.02 (0.01-0.08) K/mm3 Sodium 140 (136-145) mEq/L Potassium 4.0 (3.5-5.1) mEq/L Chloride 107 (98-107) mEq/L Carbon Dioxide 23 (21-32) mEq/L Anion Gap 14.0 (5-15) BUN 15 (7-18) mg/dL Creatinine 1.3 (0.7-1.3) mg/dL Est Cr Clr Drug Dosing 52.12 mL/min Estimated GFR (MDRD) 54 (>60) mL/min BUN/Creatinine Ratio 11.5 L (14-18) Glucose 141 H (83-115) mg/dL Calcium 8.7 (8.5-10.1) mg/dL C-Reactive Protein 20.7 H* (<1.0) mg/dL [facility] Results - Last 24 hrs: Microbiology 12/08/17 17:15 Urine Culture - Preliminary Urine, Clean Catch Escherichia Coli 12/08/17 16:50 Aerobic Blood Culture - Preliminary Blood NO GROWTH AFTER 1 DAY Anaerobic Blood Culture - Preliminary NO GROWTH AFTER 1 DAY 12/08/17 16:40 Aerobic Blood Culture - Preliminary Blood NO GROWTH AFTER 1 DAY Anaerobic Blood Culture - Preliminary NO GROWTH AFTER 1 DAY Med Orders - Current: Current Medications Acetaminophen (Tylenol) 650 mg PO Q4H PRN PRN Reason: Fever Last Admin: 12/08/17 22:38 Dose: 650 mg Bisacodyl (Dulcolax) 5 mg PO DAILY PRN PRN Reason: Constipation Docusate Sodium (Colace) 100 mg PO BID PRN PRN Reason: Constipation Enoxaparin Sodium (Lovenox) 40 mg SUBCUT DAILY [facility] Last Admin: 12/10/17 08:15 Dose: 40 mg Hydralazine HCl (Apresoline) 10 mg IVPUSH Q4H PRN PRN Reason: Hypertension Hydromorphone HCl (Dilaudid) 0.25 mg IVPUSH Q2H PRN PRN Reason: Pain (severe 7-10) Sodium Chloride (Normal Saline) 1,000 mls @ 75 mls/hr IV ASDIRECTED [facility] Last Admin: 12/10/17 08:14 Dose: 75 mls/hr Levofloxacin/Dextrose 750 mg/ (Premix) 150 mls @ 100 mls/hr IV Q24H [facility] Last Admin: 12/09/17 17:25 Dose: 100 mls/hr Loratadine (Claritin) 10 mg PO DAILY [facility] Last Admin: 12/10/17 08:15 Dose: 10 mg Magnesium Hydroxide (Milk Of Magnesia) 30 ml PO Q12H PRN PRN Reason: Constipation Metoprolol Tartrate (Lopressor) 5 mg IVPUSH Q4H PRN PRN Reason: Tachycardia Ondansetron HCl (Zofran Odt) 4 mg PO Q4H PRN PRN Reason: nausea, able to take PO Last Admin: 12/08/17 23:26 Dose: 4 mg Ondansetron HCl (Zofran) 4 mg IV Q4H PRN PRN Reason: Nausea/Vomiting Oxycodone/Acetaminophen (Percocet 325-5 Mg) 1 tab PO Q4H PRN PRN Reason: Pain (moderate 4-6) Pantoprazole Sodium (Protonix) 40 mg PO DAILY [facility] Last Admin: 12/10/17 08:15 Dose: 40 mg Polyethylene Glycol (Miralax) 17 gm PO DAILY PRN PRN Reason: Constipation Senna/Docusate Sodium (Senna Plus) 1 tab PO BID PRN PRN Reason: Constipation Sodium Chloride (Saline Flush) 10 ml FLUSH ASDIRECTED PRN PRN Reason: Keep Vein Open Last Admin: 12/08/17 17:28 Dose: 10 ml Temazepam (Restoril) 7.5 mg PO BEDTIME PRN PRN Reason: Sleep Discontinued Medications Acetaminophen (Tylenol) 975 mg PO NOW ONE Stop: 12/08/17 16:40 Last Admin: 12/08/17 16:55 Dose: 975 mg Enoxaparin Sodium (Lovenox) 30 mg SUBCUT DAILY [facility] Last Admin: 12/09/17 08:29 Dose: 30 mg Enoxaparin Sodium (Lovenox) 40 mg SUBCUT DAILY [facility] Ceftriaxone Sodium 1 gm/ (Sodium Chloride) 100 mls @ 200 mls/hr IV ONETIME ONE Stop: 12/08/17 17:07 Last Admin: 12/08/17 16:54 Dose: 200 mls/hr Sodium Chloride (Normal Saline) 1,000 mls @ 999 mls/hr IV ONETIME [facility] Last Admin: 12/08/17 16:54 Dose: 999 mls/hr Levofloxacin/Dextrose 750 mg/ (Premix) 150 mls @ 100 mls/hr IV ONETIME ONE Stop: 12/08/17 19:29 Last Admin: 12/08/17 18:19 Dose: 100 mls/hr Levofloxacin/Dextrose 750 mg/ (Premix) 150 mls @ 100 mls/hr IV Q24H [facility] Ondansetron HCl (Zofran) 4 mg IVPUSH ONETIME ONE Stop: 12/08/17 16:40 Last Admin: 12/08/17 16:55 Dose: 4 mg Pantoprazole Sodium (Protonix Iv) 40 mg IVPUSH DAILY [facility] Last Admin: 12/09/17 08:29 Dose: 40 mg - Exam Quality Assessment: Denies: Supplemental Oxygen General: Reports: Alert, Oriented, Cooperative, No Acute Distress HEENT: Reports: Pupils Equal, Pupils Reactive, EOMI, Mucous Membr. Moist/[place] Neck: Reports: Supple. Denies: Lymphadenopathy Lungs: Reports: Clear to Auscultation, Normal Respiratory Effort Cardiovascular: Reports: Regular Rate, Regular Rhythm, No Murmurs GI/Abdominal Exam: Normal Bowel Sounds, Soft, Non-Tender, No Distention (Male) Exam: Deferred Rectal (Males) Exam: Deferred Back Exam: Reports: Normal Inspection, Full Range of Motion Extremities: Normal Inspection, Normal Range of Motion, Non-Tender, No Pedal Edema, Normal Capillary Refill Skin: Reports: Warm, Dry, Intact Neurological: Reports: No New Focal Deficit, Normal Gait, Strength Equal Bilateral, Reflexes Equal Bilateral (grossly ) Psy/Mental Status: Reports: Alert, Normal Affect, Normal Mood
[2017-12-10] MEDS ORDERED: Levofloxacin/Dextrose 5%-Water 750 MG in Premix Bag 1 BAG IV SCH (18:00)
== END 2017-12-10 15:03 | disposition home or self-care (01) | DRG 690 ==
LOC: SUPCPDRO 16:06 → JD.ED 16:06 → JD.MS 18:19
PROVIDERS: ADMIT Emergency Medicine; ATTEND Internal Medicine Cardiovascular Disease
DX: N12 Tubulo-interstitial nephritis, not specified as acute or chronic (principal); B96.20 Unspecified Escherichia coli [E. coli] as the cause of diseases classified elsewhere; N17.9 Acute kidney failure, unspecified; K21.9 Gastro-esophageal reflux disease without esophagitis; D50.9 Iron deficiency anemia, unspecified; H54.7 Unspecified visual loss; M19.90 Unspecified osteoarthritis, unspecified site; N40.1 Benign prostatic hyperplasia with lower urinary tract symptoms; R35.0 Frequency of micturition; R42 Dizziness and giddiness; N41.9 Inflammatory disease of prostate, unspecified; R11.2 Nausea with vomiting, unspecified; R00.0 Tachycardia, unspecified; R50.9 Fever, unspecified; D64.9 Anemia, unspecified; Z79.899 Other long term (current) drug therapy; Z87.440 Personal history of urinary (tract) infections; Z85.828 Personal history of other malignant neoplasm of skin; Z86.14 Personal history of Methicillin resistant Staphylococcus aureus infection
CPT/HCPCS: 36415; 80053; 81001; 83605; 85007; 85027; 86140; 87040 ×2; 87086; 96361; 96365; 96375; 99285; A9270; J0696; J2405; J7030; J7040; J7050; 80048; 85025; 87088; 87186; 87641; 99284; C9113; J1650; J1956